=== PATIENT | male | born 1960 | race Hispanic/Latino ===

== ENCOUNTER 2019-01-23 00:14 | Observation (INO) | payer OTHER ==
[2019-01-23 00:41] LABS: #Eosinphils 0.1 thou/uL (0.0-0.7); #Monocytes 0.3 thou/uL (0.11-0.59); #Neutrophils 2.6 thou/uL (1.40-6.50); %Basophils 0.5 % (0.0-1.0); %Lymphocytes 40.4 % (21.0-51.0); %Monocytes 5.6 % (0.0-10.0); %Neutrophils 52.4 % (42.0-75.0); Hemoglobin 10.7 g/dL (14.0-18.0); Mean Corpuscular HGB CONC 34.5 g/dL (32.0-36.0); Mean Corpuscular Hemoglobin 32.3 pg (27.0-31.0); Mean Corpuscular Volume 93.8 fL (78.0-98.0); Mean Platelet Volume 6.4 fL (7.4-10.4); Platelet Count 146 thou/uL (130-400); RBC Distribution Width 14.6 % (11.5-14.5); Red Blood Cell (RBC) Count 3.31 mill/uL (4.70-6.10)
[2019-01-23 01:01] LABS: ALT (SGPT) 13 U/L (8-55); AST (SGOT) 15 U/L (5-34); Albumin 4.4 g/dL (3.5-5.0); Alkaline Phosphatase 127 U/L (40-110); Anion Gap 14 mmol/L (10-20); BUN (Urea Nitrogen) 10 mg/dL (8.4-25.7); Bilirubin, Total 0.3 mg/dL (0.2-1.2); Calc. Creatinine Clearance 0 mL/min (70-130); Calcium 9.4 mg/dL (7.8-10.44); Carbon Dioxide 26 mmol/L (22-29); Chloride 102 mmol/L (98-107); Estimated GFR-MDRD Greater than 90; Globulin 2.8 g/dL (2.4-3.5); Glucose 135 mg/dL (70-105); Lipase 15 U/L (8-78); Potassium 3.6 mmol/L (3.5-5.1); Protein, Total 7.2 g/dL (6.0-8.3); Sodium 138 mmol/L (136-145)
[2019-01-23] MEDS ORDERED: Morphine 4 MG/ML VIAL ONE (01:02)
[2019-01-23] MEDS ORDERED: Ondansetron PF 4 MG/2 ML Vial ONE (01:03)
[2019-01-23] MEDS ORDERED: Piperacillin/Tazobactam 3.375 GM VIAL ONE (04:05)
[2019-01-23 06:29] VITALS: BMI 26.2
[2019-01-23] MEDS ORDERED: Morphine 2 MG/ML SYRINGE SLOW IVP PRN (07:46)
[2019-01-23] MEDS ORDERED: Ondansetron PF 4 MG/2 ML Vial IVP PRN (07:47)
[2019-01-23] MEDS ORDERED: Ondansetron ODT 4 MG TAB PO PRN (07:47)
--- NOTE | 2019-01-23 07:49 | RAD ---
EXAM: Single view of the chest HISTORY: Epigastric pain COMPARISON: None FINDINGS: Single view of the chest shows a normal sized cardiomediastinal silhouette. The Mediport i s unchanged in position. There is no evidence of consolidation, mass, or pleural effusion. The bones are unremarkable. IMPRESSION: No evidence of acute cardiopulmonary disease
[2019-01-23] MEDS ORDERED: Sodium Chloride 0.9% 1,000 ML IV SCH (08:00)
[2019-01-23] MEDS ORDERED: Acetaminophen 1,000 MG in Premix Bag 1 BAG IVPB SCH (08:30)
[2019-01-23] MEDS ORDERED: Ketorolac Tromethamine 30 MG/ML VIAL IVP SCH (08:30)
[2019-01-23] MEDS ORDERED: Acetaminophen 1,000 MG in Premix Bag 1 BAG IVPB PRN (08:30)
[2019-01-23] MEDS ORDERED: Ketorolac Tromethamine 30 MG/ML VIAL IVP PRN (08:30)
--- NOTE | 2019-01-23 09:04 | ULT ---
PRELIMINARY REPORT/[facility]/EMERGENCY AFTER HOURS PROCEDURE: PROCEDURE INFORMATION: Exam: US Abdomen Limited, Right Upper Quadrant Exam date and time: 01/23/2019 12:41 AM Clinical history: 58 years old, male; Nausea and vomiting; Abdominal pain; Patient HX: Epigastric karissa n, n/v; Additional info: HX lung CA TECHNIQUE: Imaging protocol: Real-time ultrasound of the abdomen with image documentation. Examination was focus ed on the right upper quadrant. COMPARISON: No relevant prior studies available. FINDINGS: Liver: Unremarkable liver, no focal abnormality. Gallbladder: The gallbladder appears borderline to mildly distended, transverse diameter up to about 4.1 cm. Mild to moderate amount of apparent biliary sludge in the gallbladder. No definite cholelithiasis/shadowing gallstones. Overall gallbladder wall thickness appears within normal limits, around 2 mm. Suspect a small gallbladder wall edema versus pericholecystic fluid. Common bile duct: No biliary dilation, common duct measures 2.8 mm. Pancreas: Visible pancreas unremarkable. Some of the pancreas is obscured by bowel gas. Right kidney: Images of the right kidney show no hydronephrosis. IMPRESSION: 1. Borderline to mildly distended gallbladder, details above. 2. Suspected biliary sludge, no visible shadowing gallstones. 3. Suspect a small gallbladder wall edema versus pericholecystic fluid. 4. Other findings discussed above. Thank you for allowing us to participate in the care of your patient. Dictated and Authenticated by: Flex Tyson MD 01/23/2019 1:32 AM Central Time ([place] & [place]) FINAL REPORT EMERGENCY AFTER HOURS RIGHT UPPER QUADRANT ABDOMINAL ULTRASOUND: COMPARISON: CT abdomen/pelvis 01/23/19. FINDINGS/IMPRESSION: I agree with the findings and impression given in the preliminary report per [facility] physician. Gallblad ming wall distention with sludge. There is pericholecystic fluid. The stones seen on CT are not defini tely seen on ultrasound. POS: [facility]
--- NOTE | 2019-01-23 09:06 | CT ---
PRELIMINARY REPORT/[facility]/EMERGENCY AFTER HOURS PROCEDURE: PROCEDURE INFORMATION: Exam: CT Abdomen And Pelvis With Contrast Exam date and time: 01/23/2019 1:56 AM Clinical history: 58 years old, male; Abdominal pain; Prior surgery; Patient HX: 58 y/o m presents to ED C/O sudden onset of epigastric pain that began at 2230. Abd surgical HX of appendectomy. H/o lung CA, unspecified abd CA, for which PT is currently undergoing treatment. PT states CA has improved [facility] treatment; Additional info: HX lung CA TECHNIQUE: Imaging protocol: Computed tomography of the abdomen and pelvis with intravenous contrast. COMPARISON: US Gallbladder RUQ 01/23/2019 12:41 AM FINDINGS: Lungs: Minimal bibasilar atelectasis or scarring. Calcified granuloma within the lingula. Mediastinum: Small-sized hiatal hernia. Liver: Normal. Gallbladder and bile ducts: Cholelithiasis, with gallbladder enlargement and gallbladder wall thicken ing, compatible with cholecystitis. No biliary dilation. Pancreas: Normal. Spleen: Normal. Adrenals: Normal. Kidneys and ureters: Normal. Stomach and bowel: Scattered colonic diverticulosis. Few loops of nondilated, gas and fluid-filled sm all bowel, which is a nonspecific finding, but can be seen with enteritis. Appendix: No evidence of appendicitis. Intraperitoneal space: Unremarkable. No free air. No significant fluid collection. Vasculature: Phleboliths in the pelvis. Lymph nodes: Unremarkable. No enlarged lymph nodes. Bladder: Unremarkable as visualized. Reproductive: Unremarkable as visualized. Bones/joints: No acute abnormality. Soft tissues: Normal. IMPRESSION: 1. Cholelithiasis, with gallbladder enlargement and gallbladder wall thickening, compatible with chol ecystitis. No biliary dilation. 2. Few loops of nondilated, gas and fluid-filled small bowel, which is a nonspecific finding, but can be seen with enteritis. Thank you for allowing us to participate in the care of your patient. Dictated and Authenticated by: Josue Jackson MD 01/23/2019 3:11 AM Central Time ([place] & [place]) FINAL REPORT EMERGENCY AFTER HOURS CT ABDOMEN AND PELVIS WITH CONTRAST: FINDINGS/IMPRESSION: I agree with the findings and impression given in the preliminary report per [facility] physician. Cholelit hiasis with gallbladder wall thickening. This could be secondary to acute cholecystitis. Correlate [facility] LFTs and white blood cell count. POS: [facility]
--- NOTE | 2019-01-23 09:57 | HP ---
HISTORY OF PRESENT ILLNESS: Mr. Nithin Wilson is a 58-year-old male patient, who is seeing Dr. Ch completing 6 cycles of chemotherapy today for right lung cancer. I placed a MediPort on 11/05/2018, right subclavian vein for antineoplastic chemotherapy administration for metastatic lung cancer, stage IV, right lower lobe squamous cell. He last had his treatment 2 weeks ago. He was initially seen by Dr. Anne, who performed a bronchoscopy with biopsy. Lung biopsy on revealed squamous cell carcinoma, moderately differentiated, right lower lobe. 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 The patient has been having epigastric pain, back radiation, nausea. On this occasion, he was admitted and ultrasound revealed sludge, normal bile duct caliber, normal liver function tests. CAT scan revealed gallstones, thickened gallbladder wall. Plan is for laparoscopic cholecystectomy. Using the piped buttonhole machine operator phone, I have explained the risks of infection, bleeding, visceral and biliary injury, bleeding postoperatively, and we will plan laparoscopic cholecystectomy today and discharge home as an outpatient. ALLERGIES: NONE. SOCIAL HISTORY: Tobacco, never. Alcohol, none. MEDICATIONS: Metformin 500 mg a day. 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 Diabetes mellitus. PAST SURGICAL HISTORY: Open appendectomy, infraumbilical incision in [place], bronchoscopy and lung biopsy, MediPort placement. REVIEW OF SYSTEMS: Ten-point noncontributory. PHYSICAL EXAMINATION: VITAL SIGNS: 5 feet 7, 167 pounds, 26 BMI. Temperature 98.2, pulse 68, blood pressure 130/81. LUNGS: Clear to auscultation. CARDIAC: Regular rate and rhythm without murmur or gallop. ABDOMEN: Soft, mild tenderness in the epigastric and right upper quadrant. No peritoneal signs. Infraumbilical incision consistent with open appendectomy in [place] years past. MediPort, right chest. EXTREMITIES: Unremarkable. NEUROLOGIC: Intact. No focal deficit. LABORATORY DATA: White count 5, hemoglobin 10.7, platelet count 146,000. Comprehensive metabolic profile normal. Normal liver function tests. Renal function normal. ASSESSMENT: Symptomatic gallstones. PLAN: Laparoscopic video cholecystectomy. Expect discharge home postoperative today. I have used a piped buttonhole machine operator service and examined him and taken the history. I have explained the risks of infection, bleeding, reoperation, and consents. Job ID: [id number]
[2019-01-23] MEDS ORDERED: Piperacillin/Tazobactam 3.375 GM in Sodium Chloride 0.9% 100 ML IVPB SCH (10:00)
[2019-01-23] MEDS ORDERED: Iopamidol 370 76% 100 ML VIAL ONE (11:36)
[2019-01-23] MEDS ORDERED: Ibuprofen 600 MG TAB PO PRN (13:37)
[2019-01-23] MEDS ORDERED: traMADol HCl 50 MG TAB PO PRN ×2 (13:37)
[2019-01-23] MEDS ORDERED: Bupivacaine HCl 0.5%/Epinephrine 1:200,000/PF 30 ml Vial ONE (13:38)
[2019-01-23] MEDS ORDERED: Midazolam HCl 2 mg/2 ml Vial ONE (13:44)
[2019-01-23] MEDS ORDERED: Fentanyl 100 MCG/2 ML VIAL ONE ×2 (13:44→15:11)
[2019-01-23] MEDS ORDERED: Promethazine HCl 25 MG/ML VIAL SLOW IVP PRN (14:40)
[2019-01-23] MEDS ORDERED: Ondansetron HCl/PF 4 MG/2 ML Vial IVP PRN (14:40)
[2019-01-23] MEDS ORDERED: Promethazine HCl 25 MG/ML VIAL IM PRN (14:40)
[2019-01-23 16:44] VITALS: BP 113/71; TEMP 97.5
--- NOTE | 2019-01-23 18:30 | OP ---
DATE OF PROCEDURE: 01/23/2019 PREOPERATIVE DIAGNOSES: 1. Cholecystitis, acute on chronic. 2. Cholelithiasis. 3. History of right lung cancer, undergoing chemotherapy. POSTOPERATIVE DIAGNOSES: 1. Cholecystitis, acute on chronic. 2. Cholelithiasis. 3. History of right lung cancer, undergoing chemotherapy. PROCEDURE PERFORMED: Laparoscopic video cholecystectomy. ANESTHESIA: General and local with 0.5% Marcaine with epinephrine 30 mL total volume used. DESCRIPTION OF PROCEDURE: The patient was taken to the operating room, where under general anesthesia, abdomen was prepared with ChloraPrep and draped in routine fashion. Local anesthetic was infiltrated in the skin and subcutaneous tissue about each port site. Because of infraumbilical incision from an open appendectomy, a right subcostal midclavicular incision made. Pneumoperitoneum to 15 mmHg was obtained with a Veress needle, replaced with a 5 port. Laparoscope inserted. A supraumbilical incision made to direct 5 port under laparoscopic visualization and adhesion free area. The video laparoscope scope moved to this port. Right subxiphoid incision was made and 11 port were placed and right lateral subcostal incision made and a 5 port placed. Liver appeared to be normal. Fundus of the gallbladder was grasped at cephalad. Infundibulum grasped at the laterally. Cystic artery and duct dissected free. Critical view obtained. Cystic artery and duct doubly clipped proximally and divided. Gallbladder dissected free from liver bed, obtaining good hemostasis prior to division of the final peritoneal attachments. Gallbladder and stones removed and submitted to Pathology. Good hemostasis ensured with the cautery. Irrigant and pneumoperitoneum evacuated. All instruments were removed. All skin incisions were approximated with interrupted subdermal 4-0 Monocryl and [place] glue applied. Job ID: [id number]
--- NOTE | 2019-01-23 19:58 | DIS ---
DATE OF ADMISSION: 01/23/2019 DATE OF DISCHARGE: 01/23/2019 DISCHARGE DIAGNOSES: 1. Acute chronic cholecystitis, cholelithiasis. 2. Squamous cell carcinoma of the lung, undergoing chemotherapy. PROCEDURE PERFORMED: Laparoscopic video cholecystectomy with normal preoperative ultrasound and CAT scan except for gallstones, cholelithiasis. Liver function tests were normal. HISTORY: A 58-year-old male undergoing chemotherapy for squamous cell carcinoma of the right lower lung. I previously placed a right subclavian vein MediPort. He presents with intermittent biliary symptoms occurring over the last several weeks. Ultrasound in the emergency room documented gallstones. CAT scan revealed thickened wall and gallstones. Laparoscopic video cholecystectomy undertaken after hydration, intravenous antibiotic administration. He was discharged home the same day, will follow up in my office in 2 to 3 weeks. Diet and activity as tolerated. No activity or lifting restrictions. Tylenol and Advil [id number] as needed. Prescription for tramadol #22 refills given if needed. Job ID: [id number]
[2019-01-24] MEDS ORDERED: Acetaminophen 500 MG TAB PO PRN (08:30)
== END 2019-01-23 18:52 | disposition home or self-care (01) ==
LOC: ERS 00:14 → SJJU 06:25
PROVIDERS: ADMIT Specialist; ATTEND Specialist
PROC: 0FT44ZZ Resection of Gallbladder, Percutaneous Endoscopic Approach (ICD-10-PCS; principal; 2019-01-23)
DX: K80.13 Calculus of gallbladder with acute and chronic cholecystitis with obstruction (principal); C34.31 Malignant neoplasm of lower lobe, right bronchus or lung; E11.9 Type 2 diabetes mellitus without complications; I10 Essential (primary) hypertension; Z79.4 Long term (current) use of insulin
CPT/HCPCS: 71045; 74177; 76705; 80053; 83690; 84484; 85025; 88304; 93005; 96361; 96365; 96366; 96367; 96375; G0378; J0670; J1956; J2250; J2270; J2405; J2543; J3010; J3490; Q9967

== ENCOUNTER 2019-05-01 08:10 | Outpatient (CLI) | payer OTHER ==
--- NOTE | 2019-05-01 09:20 | CT ---
CT of chest and abdomen performed with contrast enhancement: HISTORY: Squamous cell carcinoma the right lower lobe, bilateral adrenal metastases at diagnosis. Thi s is follow-up after chemotherapy. COMPARISON: A CT abdomen examination that was performed 01/23/2019. FINDINGS: The lungs show some chronic appearing change. There is some parenchymal scarring in the annamaria g bases more prominent within the right base. I do not appreciate any type of lung mass. There is no significant mediastinal, hilar or axillary adenopathy. The thyroid gland is normal in appearance. The thoracic aorta is normal in caliber. CT of abdomen performed with contrast enhancement: The liver shows no focal findings the spleen and p ancreas regions are unremarkable. The gallbladder has been removed. Right and left adrenal glands and right and left kidneys are normal in size. There is no significant periaortic or mesenteric adenopathy. Review of osseous structures show arthritic changes of the spine no lytic or blastic bony change IMPRESSION: 1. Chronic lung change. 2. Postcholecystectomy change. 3. No adrenal masses are identified.
== END 2019-05-01 08:11 | disposition home or self-care (01) ==
LOC: SCSCT 08:10
PROVIDERS: ATTEND Internal Medicine Hematology & Oncology
DX: C34.31 Malignant neoplasm of lower lobe, right bronchus or lung (principal); J98.4 Other disorders of lung; C79.72 Secondary malignant neoplasm of left adrenal gland; C79.71 Secondary malignant neoplasm of right adrenal gland; Z90.49 Acquired absence of other specified parts of digestive tract
CPT/HCPCS: 71260; 74160